=== PATIENT | male | born 1965 | race Caucasian/White ===

== ENCOUNTER 2023-11-17 09:51 | Outpatient (CLI) | payer BC, SELFPAY | END 2023-11-17 09:52 | disposition home or self-care (01) | LOC: CHSAUDIO 09:58 | PROVIDERS: PCP Otolaryngology; Visit Provider Otolaryngology | DX: H65.499 Other chronic nonsuppurative otitis media, unspecified ear (principal); H90.2 Conductive hearing loss, unspecified; J31.0 Chronic rhinitis | CPT/HCPCS: 92557; 92567 ==

== ENCOUNTER 2024-04-29 16:33 | Outpatient (CLI) | payer BC, SELFPAY ==
--- NOTE | ~2024-04-29 | XR_ITS ---
EXAMINATION: XR chest 2V DATE: 04/29/2024 16:51 INDICATION: Preop for gastric bypass procedure. TECHNIQUE: Frontal and lateral views of the chest were obtained. COMPARISON: Chest single view 10/21/2007 FINDINGS: There is no pneumonia, pleural effusion, or pneumothorax. The heart size is normal. There i s mild chronic anterior wedging of multiple thoracic vertebral bodies. IMPRESSION: 1. No acute cardiopulmonary disease. Reviewed, dictated and finalized at location A. OPERATIONS MANAGER
--- OUTSIDE RECORDS SUMMARY | 2024-04-29 16:38 | XMS_ITS | Clinical Summary ---
Author Organization [facility] Address [address] [place] [address]. [place], [place] [id number] [place] [id number] Care Team Providers Care Nurse'S Companion Name Role Phone Duke Ochoa MD Primary Care Provider Allergies No known active allergies Medications insulin aspart (NOVOLOG) 100 UNIT/ML injection (VIAL) Inject into the skin 3 (three) times daily before meals. Active TOUJEO SOLOSTAR 300 UNIT/ML Solution Pen-injector INJECT 20 UNITS SUBCUTANEOUSLY NIGHTLY Active Active Problems No known active problems Social History Tobacco Use Types Packs/Day Years Used Date Smoking Tobacco: Never Smokeless Tobacco: Never Tobacco Cessation:Counseling Given: Not Answered Alcohol Use Standard Drinks/Week Comments Not Currently 0 (1 standard drink = 0.6 oz pur e alcohol) Sex and Gender Information Value Date Recorded Sex Assigned at Not on file Legal Sex Male 11:20 PM CDT Gender Identity Not on file Sexual Orientation Not on file Last Filed Vital Signs Vital Sign Reading Time Taken Comments Blood Pressure 136/75 03/28/2023 1:41 PM BOOKKEEPER Pulse 75 03/28/2023 1:41 PM BOOKKEEPER Temperature 36.3 ??C (97.4 ??F) 03/28/2023 1:41 PM CS T Respiratory Rate 16 03/28/2023 1:41 PM BOOKKEEPER Oxygen Saturation 97% 03/28/2023 1:41 PM BOOKKEEPER Inhaled Oxygen Concentration - - Weight 129.3 kg (285 lb) 03/19/2023 1:44 PM BOOKKEEPER Height 177.8 cm (5' 10 ) 03/19/2023 1:44 PM BOOKKEEPER Body Mass Index 40.89 03/19/2023 1:44 PM BOOKKEEPER Plan of Treatment Health Maintenance Due Date Last Done Comments Annual Physical 02/06/1967 Hepatitis C 02/06/1982 Zoster Vaccines (1 of 2) 02/06/2014 COVID-19 Vaccine (2 - 2023-2 5 season) 2023 06/16/2021 Influenza Adult (#1) 2023 RSV Immunization or 60+ Years (1 - Risk 60-74 years 1-dose series) 2024 DTaP, Tdap and Td Vaccines ( 2 - Td or Tdap) 03/17/2025 03/17/2015 Colorectal Cancer Screening Colonoscopy (10 Years) 03/28/2033 03/28/2023, 03/28/2023 Meningococcal B Vaccine Aged Out No l onger eligible based on patient's age to complete this topic Meningococcal Vaccine Aged Out No derrek hussein eligible based on patient's age to complete this topic Pneumococcal Vaccine: Pediatrics (0 to 5 Years) and At-Risk Patients (6 to 64 Years) Aged Out No longer eligible b ased on patient's age to complete this topic RSV Immunizations Under 20 Months Aged Out No longer eligible b ased on patient's age to complete this topic Procedures Procedure Name Priority Date/Time Associated Diagnosis Comments COLONOSCOPY 03/28/2023 6:47 AM BOOKKEEPER from Last 3 Months or Most Recently Relevant to Health Maintenance Results * Colonoscopy (03/28/2023 6:47 AM BOOKKEEPER) Isaak Carlson MD GI PROCEDURE ORDERABLES Final Result from Last 3 Months or Most Recently Relevant to Health Maintenance Insurance [facility] Care Teams Nurse'S Companion Relationship Specialty Start Date End Date Duke Ochoa MD [address] [place] [phone] PCP - General FAMILY PRACTICE 03/12/23
--- OUTSIDE RECORDS SUMMARY | 2024-04-29 16:38 | XMS_ITS | Referral Summary ---
Author Organization [facility] [address] Address [address] [place] [address] Phone Care Team Providers Care Movement Assembler Name Role Phone Stewart Russo MD Primary Care Provider [phone] Allergies No known active allergies Medications insulin aspart (NovoLOG) 100 unit/mL (3 mL) pen for injection Inject 12 Units under the skin 3 (three) times a day before meals 12 mL 11 2 Active insulin glargine (TOUJEO) 300 unit/mL (1.5 mL) pen for injection Inject 20 Units under the skin nightly 15 mL 5 2 Active metFORMIN (GLUCOPHAGE) 500 mg tabletIndicatio ns:Type 2 diabetes mellitus with hyperglycemia, with long-term current use of insulin ([facility]) TAKE 1 TABLET BY MOUTH TWICE DAILY BEFORE BREAKFAST AND BEFORE SUPPER 180 tablet 1 3 Active Active Problems Problem Noted Date Diagnosed Date Type 2 diabetes mellitus with hyperglycemia ([facility] /[facility]) 07/30/2021 Type 2 diabetes mellitus wit h hyperglycemia, with long-term current use of insulin 06/12/2021 Assessment & Plan (06/24/2022 9:03 AM CDT): Diagnosed in May/2021 Control : in good control without hypoglycemia A1c 6.1% on 06/24/22 A1c 6.0% on 03/27/22 A1c 5.4% on 12/18/21 A1c 7.8% on 08/16/21 A1c was 14.6% on 06/12/21 Kidney: normal GFR 104 on 08/16/21 Neuropathy : none. Plan: Continue diet plan Continue Metformin to 500 mg bid. Continue Toujeo 20 units Qhs. Continue Novolog insulin 8-0-8 units with meals Monitor sugars 3 x per day . Hypoglycemia symptoms and treatment reviewed with patient. Call if having low sugars. Ophthalmology exam on regular basis. Assessment & Plan (03/27/2022 9:25 AM SCREENING TECHNICIAN): Diagnosed in May/2021 Control : in good control without hypoglycemia A1c 6.0% on 03/27/22 A1c 5.4% on 12/18/21 A1c 7.8% on 08/16/21 A1c was 14.6% on 06/12/21 Kidney: normal GFR 104 on 08/16/21 Neuropathy : none. Plan: Continue diet plan Continue Metformin to 500 mg bid. Continue Toujeo 20 units Qhs. Continue Novolog insulin 8-0-8 units with meals Monitor sugars 3 x per day . Hypoglycemia symptoms and treatment reviewed with patient. Call if having low sugars. Ophthalmology exam on regular basis. Assessment & Plan (12/18/2021 9:16 AM CDT): Diagnosed in May/2021 Control : tight control some hypoglycemia on the higher doses of insulin A1c 5.4% on 12/18/21 A1c 7.8% on 08/16/21 A1c was 14.6% on 06/12/21 Kidney: normal GFR 116 on 06/16/21 Neuropathy : none. Plan: Continue diet plan Continue Metformin to 500 mg bid. Decrease Levemir to 20 units Qhs. Decrease Novolog insulin to 8-0-8 units with meals Monitor sugars 4 x per day using CGM- send records . Hypoglycemia symptoms and treatment reviewed with patient. Call if having low sugars. Ophthalmology exam on regular basis. Assessment & Plan (09/17/2021 3:20 PM CDT): Diagnosed in May/2021 Control : improved control , but starting to have mild hypoglycemia A1c 7.8% on 08/16/21 A1c was 14.6% on 06/12/21 Kidney: normal GFR 116 on 06/16/21 Neuropathy : none. Plan: Continue diet plan Continue Metformin to 500 mg bid. Decrease Levemir to 18units Qhs. Continue Novolog insulin to 8-0-8 units with meals Monitor sugars 4 x per day using CGM- send records . Hypoglycemia symptoms and treatment reviewed with patient. Call if having low sugars. Ophthalmology exam on regular basis. Assessment & Plan (08/06/2021 4:22 PM CDT): Diagnosed in May/2021 Control : improved control , but starting to have mild hypoglycemia A1c was 14.6% on 06/12/21 Kidney: normal GFR 116 on 06/16/21 Neuropathy : none. Plan: Continue diet plan Increase Metformin to 500 mg bid. Decrease Levemir to 30 units Qhs. Decrease Novolog insulin to 8-0-8 units with meals Monitor sugars 4 x per day using CGM- send records in one week. Hypoglycemia symptoms and treatment reviewed with patient. Call if having low sugars. Ophthalmology exam on regular basis. 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 Assessment & Plan (03/27/2022 9:26 AM SCREENING TECHNICIAN): Patient asked to work on weight loss with diet and exercise - recommended low carb diet - discussed changes in diet . Assessment & Plan (08/06/2021 4:23 PM CDT): Patient asked to work on weight loss with diet and exercise - recommended low carb diet Hyponatremia Immunizations Name Administration Dates Next Due Influenza, Unspecified 12/29/2020(Deferr ed: Patient Refused),12/30/2019(Deferred: Patient Refused) Pfizer SARS-CoV-2 Monovalent Vaccination (12+ Yrs) PURPLE 06/16/2021 Tdap 03/17/2015 Social History Tobacco Use Types Packs/Day Years Used Date Smoking Tobacco: Former Cigarettes Q uit: 1991 Tobacco Cessation:Counseling Given: Not Answered Alcohol Use Standard Drinks/Week Comments Never 0 (1 standard drink = 0.6 oz pur e alcohol) PHQ-2 Answer Date Recorded PHQ-2 Total Score 0 07/30/2021 Sex and Gender Information Value Date Recorded Sex Assigned at Not on file Legal Sex Male 12:31 AM SCREENING TECHNICIAN Gender Identity Not on file Sexual Orientation Not on file Last Filed Vital Signs Vital Sign Reading Time Taken Comments Blood Pressure 136/70 06/24/2022 8:38 AM CDT Pulse 76 07/30/2021 10:09 AM CDT Temperature 36.3 ??C (97.3 ??F) 07/30/2021 1 0:09 AM CDT Respiratory Rate 18 07/30/2021 10:0 9 AM CDT Oxygen Saturation 96% 07/30/2021 10: 09 AM CDT Inhaled Oxygen Concentration - - Weight 132.8 kg (292 lb 12.8 oz) 06/24/2022 8:38 AM CDT Height 177.8 cm (5' 10 ) 06/24/2022 8:38 AM CDT Body Mass Index 42.01 06/24/2022 8:38 AM CDT Plan of Treatment Not on file Procedures Procedure Name Priority Date/Time Associated Diagnosis Comments EGFR Routine 08/30/2022 8:35 AM CDT Type 2 diabetes mellitus with hyperglycemia, with long-term current use of insulin ([facility]) ([facility]) LIPID PANEL Routine 08/30/2022 8:35 AM CDT Type 2 diabetes mellitus with hyperglycemia, with long-term current use of insulin (CMS/[facility]) ([facility]) ALBUMIN CREATININE RATIO, URINE Routine 08/30/2022 8:35 AM CDT Type 2 diabetes mellitus with hyperglycemia, with long-term current use of insulin ([facility]) ([facility]) POCT HEMOGLOBIN A1C Routine 06/24/2022 8 :54 AM CDT Type 2 diabetes mellitus with hyperglycemia, with long-term current use of insulin (CMS/HCC) (HCC) PSA SCREEN Routine 08/16/2021 3:42 PM CDT Prostate cancer screening DIABETIC EYE EXAM Routine 07/07/2021 from Last 3 Months or Most Recently Relevant to Health Maintenance Results * eGFR (08/30/2022 8:35 AM CDT) Pathologist [facility] eGFR 100 mL/min/1. 73 m2 [facility] ([place]) Comment: Interpretive Data Reference Interval Normal ?>/= 90 mL/min/1.73m2 Mildly decreased* ? 60 - 89 mL/min/1.73m2 Mildly to moderately decreased ?45 - 59 mL/min/1.73m2 Moderately to severely decreased ??30 - 44 mL/min/1.73m2 Severely decreased ?15 - 29 mL/min/1.73m2 Kidney Failure ?< 15 ??mL/min/1.73m2 *Relative to young adult level Estimated glomerular filtration rate is determined by the 2020 CKD-EPI equation recommended by the National Kidney Foundation (A Unifying Approach to GFR Estimation: Recommendations of the NKF-ASK Task Force on Reassessing the Inclusion of Race in Diagnosing Kidney Disease, JASN 202). The CKD-EPI equation should not be used for patients with unstable renal function and has not been validated in children and those over 70. Current interpretive data was last reviewed 2021. Blood 08/30/2022 8:35 AM CDT 08/30/2022 10:42 AM CDT Oziel Rivas MD LAB BLOOD ORDERABLES Final Res ult Performing Organization Address City/State/[facility] Co de Phone Number [facility] ([place]) [address] [facility] Department [place] [address] * Albumin Creatinine Ratio, Urine (08/30/2022 8:35 AM CDT) Albumin Ur <12.0 mg/L [facility] ([place]) Comment: Interpretive Data No reference range established. Current interpretive data was last revised 2018. Testing performed by: [facility], [address] [place] [address], [id number] Creatinine Ur 105.2 mg/dL [facility] ([place] Comment: Interpretive Data No reference range established. Current interpretive data was last revised 2018. Testing performed by: [facility], [address] [place] [address]., [id number] Albumin Creatinine Ratio, Ur <11 1 - 29 mg/g [facility] ([place]) Comment:Testing performed by : [facility], [address] [place] [address], [id number] Urine 08/30/2022 8:35 AM CDT 08/30/2022 5:19 PM CDT Oziel Rivas MD LAB URINE ORDERABLES Final Res ult Performing Organization Address [facility] Co de Phone Number [facility] ([place]) [address] [facility] Department [place] [address] * (ABNORMAL) Lipid panel (08/30/2022 8:35 AM CDT) Cholesterol 174 30 - 199 mg/dL [facility] ([place]) Comment: Interpretive Data Ages < or = 19 years ??Acceptable: ? <170 mg/dL ??Borderline high: ??170-199 mg/dL ??High: ? >or= 200 mg/dL Ages > or = 20 years ??Desirable: ?<200 mg/dL ??Borderline high: ??200-239 mg/dL ??High: ? >or= 240 mg/dL Literature References: 1. Expert Panel on Integrated Guidelines for Cardiovascular Health and Risk Reduction in Children and Adolescents. Pediatrics 2011;128:S213 2. NCEP Expert Panel. Circulation 2004;110:227 Current Interpretive Data was last revised on 2017. Triglycerides 297(H) <=149 mg/dL [facility] ([place]) Comment: Interpretive Data Ages < or = 9 years ??Acceptable: ? <75 mg/dL ??Borderline high: ??75-99 mg/dL ??High: ? >or= 100 mg/dL Ages 10 to 20 years ??Acceptable: ? <90 mg/dL ??Borderline high: ??90-129 mg/dL ??High: ? >or= 130 mg/dL Ages > or = 20 years ??Desirable: ?<150 mg/dL ??Borderline high: ??150-199 mg/dL ??High: ? 200-499 mg/dL ?Very high: ?? >or= 499 mg/dL Literature References: 1. Expert Panel on Integrated Guidelines for Cardiovascular Health and Risk Reduction in Children and Adolescents. Pediatrics 2011;128:S213 2. NCEP Expert Panel. Circulation 2004;110:227 Current Interpretive Data was last revised on 2017. HDL 30(L) >=40 mg/dL [facility] ([place]) Comment: Interpretive Data Ages < or = 19 years ??Acceptable: ? >45 mg/dL ??Borderline low: ?? 40-45 mg/dL ??Low: ? <40 mg/dL Ages > or = 20 years ??Desirable: ?>or= 60 mg/dL ??Low: ? <40 mg/dL Literature References: 1. Expert Panel on Integrated Guidelines for Cardiovascular Health and Risk Reduction in Children and Adolescents. Pediatrics 2011;128:S213 2. NCEP Expert Panel. Circulation 2004;110:227 Current Interpretive Data was last revised on 2017. LDL, calculated 85 <=129 mg/dL [facility] ([place]) Comment: Interpretive Data Ages < or = 19 years ??Acceptable: ? <110 mg/dL ??Borderline high: ??110-129 mg/dL ??High: ?>or= 130 mg/dL Ages > or = 20 years ??Optimal: ? <100 mg/dL ??Near optimal: ?100-129 mg/dL ??Borderline high: ?? 130-159 mg/dL ??High: ?>160 mg/dL Literature References: 1. Expert Panel on Integrated Guidelines for Cardiovascular Health and Risk Reduction in Children and Adolescents. Pediatrics 2011;128:S213 2. NCEP Expert Panel. Circulation 2004;110:227 Current Interpretive Data was last revised on 2017. Non-HDL Cholesterol 144 mg/dL [facility] ([place]) Comment: Interpretive Data Ages < or = 19 years ??Acceptable: ?<120 mg/dL ??Borderline high: ??120-144 mg/dL ??High: ?>145 mg/dL Ages > or = 20 years ??When triglycerides are >200 mg/dL, Non-HDL cholesterol is a secondary target of ? therapy with treatment goals that are 30 mg/dL greater than the LDL cholesterol target. ? Literature References: 1. Expert Panel on Integrated Guidelines for Cardiovascular Health and Risk Reduction in Children and Adolescents. Pediatrics 2011;128:S213 2. NCEP Expert Panel. Circulation 2004;110:227 Current Interpretive Data was last revised on 2017. Chol/HDL ratio 6 [facility] ([place]) Blood 08/30/2022 8:35 AM CDT 08/30/2022 10:42 AM CDT us Oziel Rivas MD LAB BLOOD ORDERABLES Final Res ult [facility] ([place]) [address] [facility] Department [place] [address] * POCT hemoglobin A1c (06/24/2022 8:54 AM CDT) Hemoglobin A1C, POC 6.1 % Blood 06/24/2022 8:54 AM CDT Oziel Rivas MD POINT OF CARE TEST ORDERABLES Final Result * PSA screen (08/16/2021 3:42 PM CDT) PSA-Total 0.83 <=3.90 ng/mL [facility] ([place]) Comment: Interpretive Data ?AGE ? SEX ?REFERENCE INTERVAL 0 minutes-150 years ?Female ?None 0 minutes-49 years ? Male ?None ? 50-59 years ? Male ?0-3.90 ? 60-69 years ? Male ?0-5.40 ? 70-79 years ? Male ?0-6.20 ? 80-150 years ?Male ?0-6.20 The Juan PSA Total assay procedure was used. Results from different manufacturers or methods may not be comparable. Serial testing should be performed using the same method. Current interpretive data last revised 21. Testing performed by: [facility], [address] [place] [address], [place]., [address] Blood 08/16/2021 3:42 PM CDT 08/16/2021 6:33 PM CDT Sally Ojeda NP LAB BLOOD ORDERABLES Final Result [facility] ([place]) [address] Department [place] [address] * Diabetic Eye Exam (07/07/2021) us Historical Provider HEALTH MAINTENANCE Final Result from Last 3 Months or Most Recently Relevant to Health Maintenance [place] Advance Directives For more information, please contact: [phone] * Full Code (Latest Code Status on File) Date Activated Date Inactivated Comments 06/12/2021 7:33 PM 06/16/2021 6:34 PM Care Teams Movement Assembler Relationship Specialty Start Date End Date Stewart Russo MD [address] [place] [address] PCP - General Family Medicine 07/30/21
--- OUTSIDE RECORDS SUMMARY | 2024-04-29 16:38 | XMS_ITS | Clinical Summary ---
Author Organization [facility] [address] Address [address] [place] [address] Phone Care Team Providers Care Glove Parts Cutter Name Role Phone Stewart Russo MD Primary Care Provider [phone] Allergies No known active allergies Medications insulin [...] hyperglycemia, with long-term current use of insulin ([facility]) TAKE 1 TABLET BY MOUTH TWICE DAILY BEFORE BREAKFAST AND BEFORE SUPPER 180 tablet 1 3 Active Active Problems Problem Noted Date Diagnosed Date Type 2 diabetes mellitus with hyperglycemia ([facility] /[facility]) 07/30/2021 Type 2 diabetes mellitus [...] basis. Assessment & Plan (03/27/2022 9:25 AM ALLERGIST/IMMUNOLOGIST): Diagnosed in May/2021 Control : in good [...] . Assessment & Plan (03/27/2022 9:26 AM ALLERGIST/IMMUNOLOGIST): Patient asked to work on weight loss [...] Vaccination (12+ Yrs) PURPLE 06/16/2021 Tdap 03/17/2015 Medical History Medical History Date Comments Hx Other Medical left index fing er fx. with lacerations 03-17-15.; Comments: JJC 03/28/2015 - Diabetes mellitus (HCC) 06/2021 Type 2 Family History Medical History Relation Name Comments Lung disease Mother Family history of lung disease - (Added by TW Conv) Other Other Family history of cancer.; Relation Name Status Comments Father (Age 40) Mother (Age 65) Other Social History Tobacco Use Types Packs/Day Years [...] on file Legal Sex Male 12:31 AM ALLERGIST/IMMUNOLOGIST Gender Identity Not on file Sexual Orientation Not on file Obstetrics History Last Filed Vital Signs Vital Sign Reading [...] 06/24/2022 8:38 AM CDT Plan of Treatment Health Maintenance Due Date Last Done Comments Colon Cancer Screening-Colonoscopy 1965 Hepatitis C Screening 1965 Pneumococcal vaccine <65 (1 of 2 - PCV) 02/06/1970 Hepatitis B Screening 02/06/1982 Regular Well Visit/Exam 18-64 02/06/1982 Zoster Vaccine (1 of 2) 02/06/2014 Depression Screening 07/30/2022 07/30/2021, 06/13/19 Hemoglobin A1C 12/25/2022 06/24/2022, 03/01, 12/18/2021, Additional history exists Foot Exam 06/25/2023 06/24/2022, 03/01, 12/18/2021, Additional history exists Dilated Eye Exam 07/08/2023 07/07/2021 Prostate Cancer Screening-PSA 08/17/2023 08/16/2021 Albumin Creatinine Ratio, Urine 08/31/2023 3, 08/16/2021 Lipid Panel 08/31/2023 08/30/2022, 08/16/2021 eGFR 08/31/2023 08/30/2022, 07/29, 06/16/2021, Additional history exists Covid-19 Vaccine (2 - 2023-2 5 season) 2023 06/16/2021 Influenza Vaccine (#1) 2023 DTaP/Tdap/Td Vaccine (2 - Td or Tdap) 03/17/2025 03/17/2015 Procedures Procedure Name Priority Date/Time Associated Diagnosis Comments EGFR Routine 08/30/2022 8:35 AM CDT Type 2 diabetes mellitus with hyperglycemia, with long-term current use of insulin (CMS/HCC) (HCC) LIPID PANEL Routine 08/30/2022 8:35 AM CDT Type 2 diabetes mellitus with hyperglycemia, with long-term current use of insulin (CMS/HCC) (HCC) ALBUMIN CREATININE RATIO, URINE Routine 08/30/2022 8:35 AM CDT Type 2 diabetes mellitus with hyperglycemia, with long-term current use of insulin (CMS/HCC) (HCC) POCT HEMOGLOBIN A1C Routine 06/24/2022 8 :54 AM CDT Type 2 diabetes mellitus with hyperglycemia, with long-term current use of insulin (CMS/HCC) (HCC) PSA SCREEN Routine 08/16/2021 3:42 PM CDT Prostate cancer screening DIABETIC EYE EXAM Routine 07/07/2021 from Last 3 Months or Most Recently Relevant to Health Maintenance Results * eGFR (08/30/2022 8:35 AM CDT) eGFR 100 mL/min/1. 73 m2 [facility] ([place]) Comment: Interpretive Data Reference Interval Normal ?>/= [...] of Race in Diagnosing Kidney Disease, JASN 2020). The CKD-EPI equation should not be used for patients with unstable renal function and has not been validated in children and those over 70. Current interpretive data was last reviewed 2021. Blood 08/30/2022 8:35 AM CDT 08/30/2022 10:42 AM CDT us Oziel Rivas MD LAB BLOOD ORDERABLES Final Res ult [facility] ([place]) [facility] [place] [address] * Albumin Creatinine Ratio, Urine (08/30/2022 8:35 AM CDT) Albumin Ur <12.0 mg/L [facility] ([place] Comment: Interpretive Data No reference range established. Current interpretive data was last revised 2018. Testing performed by: [facility], [address] [place] [address]., [id number] Creatinine Ur 105.2 mg/dL [facility] ([place] Comment: Interpretive Data No reference range established. Current interpretive data was last revised 2018. Testing performed by: [facility], [address] [place] [address]., [id number] Albumin Creatinine Ratio, Ur <11 1 - 29 mg/g [facility] ([place] Comment:Testing performed by : [facility], [address] [place] [address]., [id number] Urine 08/30/2022 8:35 AM CDT 08/30/2022 5:19 PM CDT Oziel Rivas MD LAB URINE ORDERABLES Final Res ult [facility] ([place]) [facility] [place] [address] * (ABNORMAL) Lipid panel (08/30/2022 8:35 AM CDT) Pathologist [facility] Cholesterol 174 30 - 199 mg/dL [facility] ([place]) Comment: Interpretive Data Ages < or [...] revised on 2017. Triglycerides 297(H) <=149 mg/dL [facility] ([place]) Comment: Interpretive Data [...] on 2017. HDL 30(L) >=40 mg/dL [facility] ([place]) Comment: Interpretive Data Ages < [...] on 2017. LDL, calculated 85 <=129 mg/dL [facility] ([place]) Comment: Interpretive Data [...] 2017. Non-HDL Cholesterol 144 mg/dL [facility] ([place]) Comment: Interpretive Data Ages < or = [...] on 2017. Chol/HDL ratio 6 [facility] ([place]) Blood 08/30/2022 8:35 AM CDT 08/30/2022 10:42 AM CDT us Oziel Rivas MD LAB BLOOD ORDERABLES Final Res ult [facility] ([place]) [facility] Department of Laboratories [place], [place] [id number] * POCT hemoglobin A1c (06/24/2022 8:54 AM CDT) Hemoglobin A1C, POC 6.1 % Blood 06/24/2022 8:54 AM CDT us Oziel Rivas MD POINT OF CARE TEST ORDERABLES Final Result * PSA screen (08/16/2021 3:42 PM CDT) PSA-Total 0.83 <=3.90 ng/mL [facility] ([place]) Comment: Interpretive Data ?AGE ? SEX ?REFERENCE INTERVAL 0 minutes-150 years ?Female ?None 0 minutes-49 years ? Male ?None ? 50-59 years ? Male ?0-3.90 ? 60-69 years ? Male ?0-5.40 ? 70-79 years ? Male ?0-6.20 ? 80-150 years ?Male ?0-6.20 The Degreed PSA Total assay procedure was used. Results from different manufacturers or methods may not be comparable. Serial testing should be performed using the same method. Current interpretive data last revised 21. Testing performed by: [facility], [address] [place] [address], [place]., [address] Blood 08/16/2021 3:42 PM CDT 08/16/2021 6:33 PM CDT us Salyl Ojeda NP LAB BLOOD ORDERABLES Final Result [facility] ([place]) [facility] [place] [address] * Diabetic Eye Exam (07/07/2021) us Historical Provider HEALTH MAINTENANCE Final Result from Last 3 Months or Most Recently Relevant to Health Maintenance [place] For more information, please contact: [phone] * Full Code (Latest Code Status on File) Date Activated Date Inactivated Comments 06/12/2021 7:33 PM 06/16/2021 6:34 PM Care Teams Glove Parts Cutter Relationship Specialty Start Date End Date Stewart Russo MD [address] [place] [address] PCP - General Family Medicine 07/30/21
--- OUTSIDE RECORDS SUMMARY | 2024-04-29 16:39 | XMS_ITS | Clinical Summary ---
Author Organization [facility] Address [address] [place] [address] Phone Care Team Providers Care Coater Smoking Pipe Name Role Phone Provider, None Primary Care Provider Unavailabl e Allergies No known active allergies Medications citalopram (CELEXA) 10 MG Tablet Take 10 mg by mouth daily. Active oxyCODONE-acetam inophen (PERCOCET) 5-325 MG Tablet Take 1-2 Tabs by mouth every 4 hours as needed for Pain. 30 Tab 0 03/17/2015 Active meloxicam (MOBIC) 7.5 MG Tablet Take 1 Tab by mouth daily. 15 Tab 06/10/2019 Active Immunizations Immunization Administration Dates Next Due TDAP Vaccine 03/17/2015 Social History Tobacco Use Types Packs/Day Years Used Date Smoking Tobacco: Former Cigarettes 1 15 0 03/31/1984 - 03/31/1999 Smokeless Tobacco: Never Alcohol Use Standard Drinks/Week Comments Yes 0 (1 standard drink = 0.6 oz pur e alcohol) Occassionaly Sex and Gender Information Value Date Recorded Sex Assigned at Not on file Legal Sex Male 10:39 PM CDT Gender Identity Not on file Sexual Orientation Not on file Last Filed Vital Signs Vital Sign Reading Time Taken Comments Blood Pressure 134/68 06/10/2019 7:41 PM CDT Pulse 86 06/10/2019 7:41 PM CDT Temperature 37.1 ??C (98.8 ??F) 06/10/2019 5:30 PM CD T Respiratory Rate 20 06/10/2019 7:41 PM CDT Oxygen Saturation 97% 06/10/2019 7:41 PM CDT Inhaled Oxygen Concentration - - Weight 117.9 kg (260 lb) 06/10/2019 5:30 PM CDT Height 177.8 cm (5' 10 ) 06/10/2019 5:30 PM CDT Body Mass Index 37.31 06/10/2019 5:30 PM CDT Plan of Treatment Health Maintenance Due Date Last Done Comments Hepatitis C Virus (HCV) Screening 1965 Colonoscopy 02/06/2009 Colorectal Cancer Screening 02/06/2009 Cologuard 02/06/2014 Immunochemical Fecal Occult Blood 02/06/2014 Pneumococcal Immunization (5 0+ years) (1 of 1 - PCV) 02/06/2014 Zoster Immunization (1 of 2) 02/06/2014 PSA Discussion 02/06/2019 Influenza Immunization (#1) 2023 SARS-COV-2 Immunization (2 - season) 2023 06/16/2021 Respiratory Syncytial Virus (RSV) Immunization (Adult) (1 - 1-dose 75+ series) 02/06/2039 DTaP/Tdap/Td Immunization Discontinued 03/17/2015 Hepatitis B Immunization Aged Out No longer eligible based on patient's age to complete this topic Meningococcal Immunization (ACWY) Aged Out No longer eligible based on patient's age to complete this topic Pneumococcal Immunization Combined Aged Out No longer eligible based on patient's age to complete this topic Rotavirus Immunization Aged Out No lo nger eligible based on patient's age to complete this topic Insurance [facility] Member Subscriber Plan / Payer ( fective 2015-Present) Name:Harvey Strauss Relation to Subscriber:Self Name:Harvey Strauss Payer ID:[id number] Group ID:[id number] Type:Not on file Address: [address] [employer] Care Teams Coater Smoking Pipe Relationship Specialty Start Date End Date Provider, None [place] PCP - General 03/17/15
== END 2024-04-29 16:34 | disposition home or self-care (01) ==
PROVIDERS: PCP Family Medicine
DX: E11.9 Type 2 diabetes mellitus without complications (principal); E78.5 Hyperlipidemia, unspecified; Z98.84 Bariatric surgery status
CPT/HCPCS: 71046